=== PATIENT | female | born 2000 | race Caucasian/White ===

== ENCOUNTER 2022-10-17 07:55 | Emergency (ER) | payer BC, SELFPAY ==
[2022-10-17 07:56] VITALS: BP 136/90; PULSE 69; RESP 14; TEMP 36.1; O2SAT 96; BMI 22.0
--- NOTE | 2022-10-17 08:02 | EDS_ITS ---
HPI History of Present Illness Chief Complaint: Abd Pain PFSH PFSH Medical History no medical history Home Medications ondansetron 4 mg disintegrating tablet 4 mg PO Q8H PRN nausea and vomiting 5 days #15 tabs 10/17/22 [Rx Last Taken Unknown] Allergy/AdvReac Type Severity Reaction Status Date / Time No Known Allergies Allergy Verified 10/17/22 07:56 Family History no significant family his Surgical History no surgical history Social History Smoking Status: Current every day smoker tobacco type: e-cigarettes EXAM Physical Exam Const Vital Signs: 10/17/22 07:56 Temperature 96.9 F L Temperature Source Temporal Pulse Rate 69 Respiratory Rate 14 Blood Pressure 136/90 H Blood Pressure Mean 105 Pulse Ox 96 Oxygen Delivery Method Room Air MDM MDM MDM Narrative Medical decision making narrative: HISTORY OF PRESENT ILLNESS: 22-year-old female here with abdominal pain that started approximately 2 hours prior to arrival. She complains of nausea. She also states she has been fatigued. Does note recent cough and shortness of breath. The patient denies recent surgery in the last 4 weeks or immobilization in the last 3 days, denies previous diagnosis of DVT or PE, hemoptysis, unilateral leg swelling or malignancy with treatment the last 6 months. No estrogen use noted. Denies any bleeding diathesis. Denies any urinary complaints. Sexually active with 1 partner unprotected but denies any concern for STDs vaginal discharge or vaginal lesions. Denies any constipation or diarrhea. Denies any vomiting but notes some nausea. REVIEW OF SYSTEMS: Pertinent positives: Abdominal pain, nausea Pertinent negatives: Syncope, urinary complaint PHYSICAL EXAM: Nursing triage notes reviewed, Vital signs reviewed Constitutional: please see mdm HENT: MMM Eyes: Pupils equal round and reactive to light, Extraocular muscles intact Neck: No stridor, no JVD, full neck ROM Lungs: Clear to auscultation, No wheezing or rales. No increased work of breathing, no conversational dyspnea, no accessory muscle use, no nasal flaring. No respiratory distress noted Heart: Regular rate and rhythm, No murmurs, No rubs and No gallops, 2+ distal pulses (radial, femoral, posterior tibial) in all extremities Abdomen: Soft, there is no tenderness, rigidity, rebound or guarding, no obvious peritoneal signs, no palpable pulsatile abdominal masses, no auscultated abdominal bruit : No CVAT Extremities: No edema Neuro: No focal neurological deficits, cranial nerves II through XII intact, 5/5 strength in all extremities. Intact sensation to light touch in all extremities, 2+ reflexes bilateral patella tendons. Normal gait. No ataxia. Skin: No rash or lesions noted MEDICAL DECISION MAKING: Chief Complaint: Abdominal pain, nausea External records reviewed: No recent advanced imaging the abdomen pelvis noted in the chart Factors affecting care: none Social determinants of health: none History obtained from others: none Consults: none ALL IMAGES (IF OBTAINED) HAVE BEEN PERSONALLY REVIEWED AND INTERPRETED BY MYSELF. CBC without leukocytosis, severe anemia, no thrombocytopenia. BMP without evidence of significant electrolyte abnormalities, no anion gap, no acute kidney injury. LFTs show no evidence of hepatobiliary pathology. Lipase is wnl indicating no pancreatic inflammation. Urine test is negative MDM Narrative: Patient was hemodynamically stable, afebrile, nontoxic-appearing. Abdominal exam was benign not consistent with acute surgical process. I considered the following differential diagnosis: AAA, small bowel obstruction, abdominal perforation, appendicitis, pancreatitis, hepatobiliary pathology (acute cholecystitis), mesenteric ischemia, abnormalities such as ovarian pathology, PID. I see nothing that would suggest an acute abdomen at this time. Based on history physical exam, risk factors, I have a low for bowel obstruction, incarcerated hernia, acute pancreatitis, intra-abdominal abscess, perforated viscus, diverticulitis, cholecystitis, appendicitis, PID, ovarian torsion, ectopic and tubo-ovarian abscess is very low. There is no evidence of peritonitis sepsis or toxicity at this time. Repeat abdominal exam remained benign. I feel the patient can be managed as an outpatient with follow-up with her primary physician in the next 24 to 48 hours or soon as possible. Instructions have been given for the patient to return to the ED for worsening pain, anorexia, high fevers, intractable vomiting or bleeding. The patient and/or family, caregivers express understanding. The patient and/or family, caregivers agrees with the plan. Total critical care time today provided was at least 0 [] minutes. This excludes separately billable procedures. Critical care time (if documented) is secondary to the patient having high probability of clinically significant/life threatening deterioration in the patient's condition which required my urgent intervention. Shared decision making: I will have a discussion with the patient and or visitors regarding risk/benefits of further testing or admission. They will be made aware of of the risk/benefits inherent in this decision they will be given the opportunity to voice understanding. Lab Data Attestation: I reviewed the patient's lab results. Labs: Laboratory Results - last 24 hr 10/17/22 10/17/22 08:15 08:30 WBC 4.6 RBC 4.08 L Hgb 13.6 Hct 37.7 MCV 92.4 MCH 33.3 H MCHC 36.1 H RDW Std Deviation 40.1 RDW Coeff of Lg 11.9 Plt Count 208 MPV 11.2 Immature Gran % (Auto) 0.000 Neut % (Auto) 50.7 Lymph % (Auto) 40.1 [place] % (Auto) 6.8 Eos % (Auto) 2.0 Baso % (Auto) 0.4 Absolute Neuts (auto) 2.3 Absolute Lymphs (auto) 1.84 Nucleated RBC % 0 Sodium 137 Potassium 3.6 Chloride 107 Carbon Dioxide 25.0 Anion Gap 5 BUN 8 Creatinine 0.75 Estim Creat Clear Calc 115.39 Est GFR (MDRD) Af Amer 126 Est GFR (MDRD) Non-Af 104 BUN/Creatinine Ratio 10.7 Glucose 91 Calcium 9.0 Total Bilirubin 0.60 AST 19 ALT 19 Alkaline Phosphatase 64 Total Protein 8.1 Albumin 3.9 Globulin 4.2 Albumin/Globulin Ratio 0.9 Lipase 21 Urine Test Negative Radiography Chest X-Ray - ED: Read by ED Physician Diagnostic Testing: Clinical Impression(s) from Imaging Studies Chest X-Ray 10/17/22 08:55 IMPRESSION: Normal x-ray examination of the chest. Electronically Signed: Mazin Alonzo MD at 9:21 EDT , I have personally reviewed the patient's chest x-ray. Chest x-ray is unremar kable for pulmonary edema, pneumothorax, pneumonia or focal cardiopulmonary abnormality. Discharge Plan Triage Chief Complaint: Abd Pain ED Provider: Wade Hayes Dx/Rx/DC Orders Instructions: ED Abdominal Pain Unkn Cause Fem Prescriptions: New ondansetron 4 mg tablet,disintegrating 4 mg PO Q8H PRN (Reason: nausea and vomiting) 5 Days Qty: 15 0RF Primary Care Provider: Care Physician,No Primary Referrals: Cecilio Cruz MD [Med Staff - [facility] [facility]] - Activity Restrictions/Additional Instructions: Thank you for trusting us with your care today! Please take Tylenol (2 pills, 650 mg), ibuprofen (2 pills, 400 mg) every 6 hours as needed for pain and fever control. Please return to the emergency department if your symptoms change or worsen. Please follow with your primary care physician for further outpatient evaluation and management. Disposition Disposition: Home, Self Care
[2022-10-17 08:36] LABS: Absolute Lymphocyte Count 1.84 X10^3/uL (0.83-4.51); Absolute Neutrophil Count 2.3 X10^3/uL (2.0-7.7); Basophil# 0.02 X10^3/uL; Basophil% 0.4 % (0-1); Eosinophil# 0.09 X10^3/uL; Hematocrit 37.7 % (37-47); Hemoglobin 13.6 g/dL (12.0-15.0); Lymphocyte # 1.84 X10^3/ul (0.83-4.51); Lymphocyte % 40.1 % (19-41); Mean Corp Hgb Conc 36.1 g/dL (32-36); Mean Corpuscular Hgb 33.3 pg (27.0-32.0); Mean Corpuscular Volume 92.4 fL (81-99); Mean Platelet Vol. 11.2 fl (6.2-12.0); Monocyte# 0.31 X10^3/uL; Monocyte% 6.8 % (0-10); NRBC Flagged by Analyzer 0 % (0-5); Neutrophil # 2.33 X10^3/uL (2.7-7.7); Neutrophil % 50.7 % (47-70); Platelet Count 208 K/mm3 (150-450); RBC Distribution Width CV 11.9 % (11.6-14.6); RBC Distribution Width SD 40.1 fl (35.1-43.9); Red Blood Count 4.08 M/mm3 (4.2-5.4); White Blood Count 4.6 K/mm3 (4.4-11.0)
[2022-10-17] MEDS: Ondansetron 4 MG/2 ML Vial IV (08:36)
[2022-10-17 08:46] LABS: Internal QC Validated? YES +Cl - CLEAR BKGD
[2022-10-17 08:47] LABS: Pregnancy, Urine Negative Negative
[2022-10-17 08:52] LABS: ALB/GLOB Ratio 0.9 RATIO (0.9-2.4); AST(SGOT) 19 U/L (15-37); Alanine Aminotransfer ALT/SGPT 19 U/L (13-56); Albumin, Serum 3.9 g/dL (3.2-5.0); Alkaline Phosphatase 64 U/L (45-117); Anion Gap 5 (5-15); BUN 8 mg/dL (7-18); BUN/Creat Ratio 10.7 RATIO (10-20); Chloride 107 mmol/L (98-107); Creatinine, Serum 0.75 mg/dL (0.55-1.02); EST Glomerular Filtration Rate 104 mL/min (>60); Est Glom Filt Rate - Afr Amer 126 mL/min (>60); Estimated Creatinine Clearance 115.39 ml/min; Globulin 4.2 g/dL (2.2-4.2); Glucose 91 mg/dL (74-106); Lipase 21 U/L (13-75); Potassium 3.6 mmol/L (3.5-5.1); Protein, Total 8.1 g/dL (6.4-8.2); Sodium Level 137 mmol/L (136-145)
--- NOTE | 2022-10-17 08:55 | RAD_ITS ---
STUDY: X-RAY CHEST REASON FOR EXAM: Female, 22 years old. Sob, cough TECHNIQUE: PA and lateral views of the chest. COMPARISON: None. FINDINGS: The lungs are clear and expanded. There is no demonstrated pleural abnormality. Normal size heart. Normal mediastinum and yohannes. Normal visualized pulmonary arteries. Normal visualized aortic arch and descending thoracic aorta. Normal visualized thoracic spine. Normal visualized ribs, clavicles, and shoulders. There is no demonstrated abnormality of the visualized soft tissue structures of the upper abdomen. RAD/Chest PA and Lateral IMPRESSION: Normal x-ray examination of the chest. Electronically Signed: Mazin Alonzo MD at 9:21 EDT ,
[2022-10-17] MEDS: Famotidine 200 MG/20 ML MDV 20 MG in 0.9% Normal Saline (Pres. free 8 ML 300 MG IV (09:05)
[2022-10-17 11:01] VITALS: BP 122/68; PULSE 71; RESP 16; O2SAT 99
== END 2022-10-17 11:02 | disposition home or self-care (01) ==
PROVIDERS: Emergency Provider Emergency Medicine; Visit Provider Emergency Medicine
DX: R10.9 Unspecified abdominal pain (principal); R11.0 Nausea; F17.290 Nicotine dependence, other tobacco product, uncomplicated
CPT/HCPCS: 71046; 80053; 81025; 83690; 85025; 96361; 96374; 96375; 99284; J7030; A4216; J2405; J3490

== ENCOUNTER 2023-11-02 05:03 | Inpatient (IN) | payer BC, SELFPAY ==
[2023-11-02] VITALS (45 sets, daily range): BP systolic 106–146; BP diastolic 55–84; PULSE 65–126; RESP 14–19; TEMP 36.6–37.1; O2SAT 90–99; BMI 29.7
[2023-11-02 04:46] LABS: Hemoglobin 9.3 g/dL (12.0-15.0); Mean Corp Hgb Conc 32.1 g/dL (32-36); Mean Corpuscular Hgb 29.1 pg (27.0-32.0); Mean Corpuscular Volume 90.6 fL (81-99); Mean Platelet Vol. 12.3 fl (6.2-12.0); Platelet Count 202 K/mm3 (150-450); RBC Distribution Width CV 13.6 % (11.6-14.6); RBC Distribution Width SD 45.1 fl (35.1-43.9); White Blood Count 11.2 K/mm3 (4.4-11.0)
[2023-11-02] MEDS: DiphenhydrAMINE 25 MG Capsule PO (04:54)
[2023-11-02] MEDS: Metoclopramide 10 MG Tablet PO (04:54)
[2023-11-02] MEDS: Acetaminophen 500 MG Tablet 1000 MG PO (04:54)
[2023-11-02 04:57] LABS: Protein, Urine (Random) 10.8 mg/dL (<11.9); Protein:Creat Ratio 383 mg/g CRE (0-200)
[2023-11-02 05:01] LABS: AST(SGOT) 30 U/L (15-37); Alanine Aminotransfer ALT/SGPT 27 U/L (13-56); Creatinine, Serum 0.62 mg/dL (0.55-1.02); EST Glomerular Filtration Rate 128 mL/min (>60); Est Glom Filt Rate - Afr Amer 154 mL/min (>60); Estimated Creatinine Clearance 160.34 ml/min; Uric Acid 4.8 mg/dL (2.6-6.0)
[2023-11-02] MEDS: Lactated Ringers 1,000 ML 50 ML IV (05:35)
--- NOTE | 2023-11-02 05:46 | PCM.HP.OB ---
HPI - General General Date of Admission: 11/02/23 Date of Service: 11/02/23 Chief Complaint: Headache, elevated Protein HPI Narrative CRISTIANO RODAS, is a 23 F who presents for GRANT 08/16. Pre E labs collected and pr/cr above 300. Discussed and consented for IOL. GBS positive will start PCS with Pitocin Maternal Data Information Final CLARY: 11/03/23 Gestational age: 39+6 PFSH PFSH Medical History (Updated 11/02/23 @ 05:[address] Isabella Powell MD) Pre-eclampsia Home Medications ?Medication ?Instructions ?Recorded ?Last Taken ?Type vit no.95-ferrous 1 tab PO DAILY 11/02/23 Unknown History fumarate 28 mg-folic acid 800 mcg tablet () Allergy/AdvReac Type Severity Reaction Status Date / Time No Known Allergies Allergy Verified 11/02/23 04:11 Social History Smoking Status: Former smoker History 2 Elective abortions Hx Para 0 Spontaneous abortions Hx # Term Pregnancies Ectopic pregnancies Hx # Pregnancies Multiple births # of living children NST FHR Rate Baby A Baseline: 135 Variability:: Moderate Accelerations:: 15 x 15 Decelerations:: None NST Reactive:: Yes FHR Category:: Category I Uterine Activity:: irregular ROS Constitutional Constitutional: Denies fatigue, fever(s) or malaise Eyes Eyes: Denies change in vision ENT HEENT: Reports headache(s); Denies dizziness Cardiovascular Cardiovascular: Denies chest pain, dyspnea or lightheadedness Respiratory/Chest Respiratory/Chest: Denies cough or dyspnea Gastrointestinal Gastrointestinal: Denies change in bowel habits Integumentary Integumentary: Denies rash Neurologic Neurologic: Reports headache(s); Denies confusion, dizziness, numbness or weakness Vital Signs Vital Signs Vital Signs: 11/02/23 04:07 11/02/23 04:07 11/02/23 04:07 Pulse Rate 77 Respiratory Rate 14 Blood Pressure 132/82 H BP Systolic 132 BP Diastolic 82 Pulse Ox 11/02/23 04:07 11/02/23 04:24 11/02/23 04:24 Pulse Rate 68 Respiratory Rate Blood Pressure 120/78 BP Systolic 120 BP Diastolic 78 Pulse Ox 99 Weight Weight: 86 kg Body Mass Index (BMI) 29.7 Physical Exam Const alert and no apparent distress General Appearance: cooperative HEENT normocephalic Resp normal respiratory effort GI soft to palpation GI Narrative: gravid, nontender, appropriate for gestational age Extremity no calf tenderness General Extremity: edema Skin no wounds Rashes: No rashes noted Psych activity/motor behavior normal Labs Labs Labs: Antibody Screen Pending Hct 29.0 % (37-47) L Hgb 9.3 g/dL (12.0-15.0) L Syphilis Total Ab Pending Assessment & Plan (1) Pre-eclampsia: QUALIFIERS: Trimester: third trimester Qualified Code(s): O14.93 - Unspecified pre-eclampsia, third trimester COMMENT: GRANT with proteinuria PLAN: IOL (2) 39 weeks gestation of : (3) Positive GBS test: PLAN: PCN with pitocin
[2023-11-02] MEDS: miSOPROStol 25 MCG TABLET VAGINAL ×2 (06:10→10:23)
[2023-11-02 06:18] LABS: Syphilis Antibodies Non-reactive
[2023-11-02] MEDS: 0.9% Normal Saline Single 100 ML IV.SOLN. INTRA-UTER (10:23)
[2023-11-02] MEDS: 0.9% Saline Lock 10 ML Syringe IV (10:32)
--- NOTE | 2023-11-02 13:24 | PCM.PN.BLA ---
Progress Note Late entery from approx 1015 am. Patient not feeling much cramping. No regular ctxs. Good FM. NO GRANT Currently> F HTs category 1 Perla placed over stylette in usual sterile fashion and balloon inflated to 30 cc. Patient and fetus tolerated the procedure well> placement over internal os confirmed. Second dose of vaginal cytotec then placed. Cont. expectant management for vaginal delivery. Monitor for symptoms of severe preeclampsia.
[2023-11-02] MEDS: Penicillin G Pot 5,000,000 UNITS in 0.9% Normal Saline (100mL MB+) 100 ML 150 UNITS IV (17:15)
--- NOTE | 2023-11-02 17:43 | PCM.PN.BLA ---
Progress Note Getting more painful> Cervix /-2. AROM w/ return of moderate amount of clear fluid. IUPC placed. PCN prophylaxis started. EFW < 4500 gm clinically and pelvis clinically adequate. Desires epidural> Pitocin prn
[2023-11-02] MEDS: Lactated Ringers 1,000 ML 999 ML IV (17:45)
[2023-11-02] MEDS: fentaNYL-bupivacaine (epidural) 100 ML BAG EPIDURAL ×2 (18:58→21:27)
[2023-11-02] MEDS: LACTATED RINGERS 500 ML 999 ML IV ×2 (20:36→23:56)
[2023-11-02] MEDS: Penicillin G 3,000,000 Units 50 ML 100 UNITS IV (22:25)
[2023-11-02] MEDS: Lactated Ringers 1,000 ML 200 ML IV (22:42)
[2023-11-03] VITALS (29 sets, daily range): BP systolic 93–139; BP diastolic 51–94; PULSE 72–122; RESP 14–21; TEMP 36.1–37.2; O2SAT 94–100
[2023-11-03] MEDS: fentaNYL-bupivacaine (epidural) 100 ML BAG EPIDURAL ×2 (01:00→05:13)
[2023-11-03] MEDS: Penicillin G 3,000,000 Units 50 ML 100 UNITS IV (02:32)
[2023-11-03] MEDS: Lactated Ringers 1,000 ML 200 ML IV (05:10)
--- NOTE | 2023-11-03 06:06 | PCM.PN.BLA ---
Progress Note I arrived and patient was complete. Pushed. Progressed from +1 to +3/5 station over 3 hrs. Called to patient room b/c of maternal exhaustion and attempted vacuum. Position WILI. Bladder emptied. Epidural adeaqate. Pelvis clinically adequate. R/B/A/ To trial of vacuum reviewed, patient and partner desired to proceed. Placed the vacuum on the flexion point. Pulled 2 pulls w/ 1 pop off, not really pulling when vacuum released. Trialed new vacuum in case suction was defective and pulled 2 more pulls w/ light pull pop off, not able to get adequate pull as vacuum would not stay. Clinically no true full pulls w/ the vacuum as was not able to pull and I could appreciate suction leaving as any pressure was applied. Patient pushed another 30 min. Now pushing 4 minutes. Still +3/5, caput was labia but head would restitute back in completely between pushes. No descent in past hour. Patient desires c/s over continued pushing
--- NOTE | 2023-11-03 06:11 | EX.PCM.OBRPT ---
Assessment & Plan (1) 39 weeks gestation of : (2) Pre-eclampsia: QUALIFIERS: Trimester: third trimester Qualified Code(s): O14.93 - Unspecified pre-eclampsia, third trimester COMMENT: GRANT with proteinuria (3) Positive GBS test: (4) Arrest of descent, delivered, current hospitalization: (5) deliv NOS-unsp: (6) Single live : Maternal Data Information Final CLARY: 11/03/23 Gestational age: 40 0/7 Details Operative Information Date of Procedure: 11/03/23 Pre-Operative Diagnosis: arrest of descent Post-Operative Diagnosis: same Classification: RICA Procedure Type: low transverse special education inclusion teacher #1: Osmany Guzman Type of Anesthesia: Epidural Anesthesiologist: Silvio Gautam Special Medications: duramorph Antibiotic Given: Ancef 2 grams IV x1 and Zithromax 500 mg/5 mL X1 Drain: Perla to straight drain Estimated Blood Loss: 750 Fluids Replaced: 1200 Procedure Start Time: 06:41 Procedure Stop Time: 07:20 Time of Delivery: 06:46 Findings Description of Procedure: The patient was taken to the operating room. She was prepped and draped in the dorsal supine position with a leftward tilt. A Pfannenstiel skin incision was made approximately 2 cm above the symphysis pubis and carried through to underlying layer fascia with the scalpel. The fascia was incised incised in the midline and extended laterally with the Retana scissors. The fascia was dissected off the rectus muscles with blunt and sharp dissection. The rectus muscles were in the midline and the peritoneum was entered bluntly. The peritoneal incision was stretched and the bladder blade was placed. The uterine incision was made in a low transverse fashion with the scalpel and extended superiorly and inferiorly with blunt dissection. The amniotic membranes were ruptured bluntly and clear amniotic fluid returned. The 's head was brought to the incision in the flexed position and delivered without difficulty. The remainder of the was delivered with gentle traction and fundal pressure in the standard fashion. The mouth and nares were bulb suctioned. The cord was clamped and cut as the infant was stimulated. Cord clamping was not delayed. The was handed off to the waiting nursing staff. The placenta was delivered with fundal massage and gentle traction in the standard fashion. The uterus was exteriorized and cleared of all clots and debris. The uterine incision was closed with #1 Vicryl in a running locked fashion. The incision was examined and was found to be hemostatic. Some hemoblast was placed over the uterine incision. The uterus was placed back into the peritoneal cavity and hemostasis was again confirmed. The rectus muscles were examined and any bleeding was Bovie cauterized. Hemoblast was placed over the rectus muscles. The parietal peritoneum and rectus muscles were closed en bloc with an 0 Vicryl running suture. The rectus fascia was examined and any bleeding was Bovie cauterized and the rectus fascia was closed with #1 PDS suture in a running standard fashion. The subcutaneous tissue was examining and any bleeding was Bovie cauterized. The subcutaneous tissue was reapproximated with 3-0 Vicryl suture. The skin was closed in a subcuticular fashion by the SAMPLER AND TEST PREPARER with me present in the labor and delivery suite. I performed the remainder of the procedure with assistance. All sponge, lap, and needle counts were correct. The patient was taken to her room for recovery in a stable condition. Presentation: Positive for Vertex Amniotic Membrane Rupture Type: Artificial Amniotic Fluid Description: Clear Placental Delivery Description: Expressed Placenta Disposition: Sent to Pathology Cord Vessel Description: 3 Vessels Cord Entanglement: None Cord Gases: ABG and VBG A Gender: Female ([place]) (1 minute): 8 (5 minute): 9 Delayed Cord Clamping: No Complications Complications: none Admit VTE Documentation VTE Present on Admission: No VTE Mechan Device Prophylaxis: SCD's VTE Pharm Prophylaxis Ordered: Yes
[2023-11-03] MEDS: Acetaminophen 500 MG Tablet PO (06:12)
[2023-11-03] MEDS: Sodium Citrate/Citric Acid 30 ML UDC PO (06:13)
[2023-11-03] MEDS: Cefazolin 2 GM in 0.9% Normal Saline (100mL Bag) 100 ML IV (06:30)
--- NOTE | 2023-11-03 06:30 | PLAC_PTH ---
PATIENT: CRISTIANO RODAS LOC: [facility] U#:[id number] AGE/SX: ROOM: WP010 RE11/02/[address]: Dr. Adrianna Chatterjee MD : 2000 BED: 1 DIS: 11/05/2023 SPEC #: [id number] RECD: 11/05/23 08:58 STATUS: ANH RECarolina #: [id number] STEPAN: 11/03/23 06:[address]: Adrianna Chatterjee DEPT: SURGICAL PATHOLOGY RECD BY: Tanya Lei ENTERED: 11/05/23 08:58 SP TYPE: PLACENTA OTHR DR: Dr. Isabella Powell MD No Primary Care Phys Tissues: Placenta, NOS Procedures: Surgery Specimen Level V HEADER OPERATION: Primary section PRE-OP DIAGNOSIS: Preeclampsia TISSUE SUBMITTED: Placenta MICROSCOPIC DIAGNOSIS Placenta: Placental disc - third trimester placenta (564 gm). - Focal acute vasculitis of subamniotic blood vessels. - Increased intervillous and perivillous fibrin deposition. Membranes - Acute chorioamnionitis. Umbilical cord - Three blood vessels and acute funisitis. SJ: 11/07/2023 MICROSCOPIC DESCRIPTION Slides are reviewed. GROSS DESCRIPTION SPECIMEN: PLACENTA / CLINICAL INFORMATION: A. Weight: 3.105 kg B. Gestational Age: 40 weeks C. Sex: Female PLACENTAL WEIGHT (POST FIXATION): 564 gm PLACENTAL DIMENSIONS: 21.0 x 18.0 x 3.0 cm PLACENTAL SHAPE: Usual ovoid PLACENTAL WEIGHT FOR GESTATIONAL AGE: Within 10-99th percentile MEMBRANES - Present A. Insertion: Marginal B. Site of rupture from edge: 8.0 cm from the margin C. Color of membrane: Stringer-mucoidy D. Abnormalities: None UMBILICAL CORD - Present A. Color: Stringer-morgan B. Insertion: Central C. Length: 36.0 cm D. Diameter: 1.1 cm E. Number of vessels: Three F. Abnormalities: None PLACENTAL DISC - Present A. Color of surface: Stringer-morgan B. surface abnormalities: None C. Maternal cotyledons: Intact with minimal tears D. Attached retro placental clot: No clot E. Cut surface: Dark red and spongy F. Lesions: Sections reveal a stringer indurated lesion measuring 1.0cm in greatest dimension. G. Separate clot: Absent SECTIONS SUBMITTED: (6 cassettes) 1. Membrane roll 2. Cord, maternal end, lesion 3. Cord, end 4. Placental disc, and maternal surfaces 5. Placental disc, and maternal surfaces 6. Placental disc, and maternal surfaces HERNESTO/mr 11/06/2023 TC:2 CPT: 47362
[2023-11-03] MEDS: Ketorolac 30 MG/ML Syringe IV ×3 (07:58→21:00)
[2023-11-03] MEDS: Oxytocin 15 Units/NS 250ml 15 UNITS/250 ML IV.SOLN 83 UNITS IV (08:04)
[2023-11-03] MEDS: Azithromycin 500 MG in Dextrose 5%-Water (250mL Bag) 250 ML 250 MG IV (11:32)
[2023-11-03] MEDS: Lactated Ringers 1,000 ML 100 ML IV (12:43)
[2023-11-03] MEDS: Acetaminophen 500 MG Tablet 1000 MG PO ×2 (13:21→19:11)
[2023-11-03] MEDS: Enoxaparin 40 MG/0.4 ML Syringe SC (19:11)
[2023-11-03] MEDS: 0.9% Saline Lock 10 ML Syringe IV (21:00)
[2023-11-04 00:06] VITALS: BP 114/66; PULSE 87; RESP 16; TEMP 36.2; O2SAT 99
[2023-11-04] MEDS: Acetaminophen 500 MG Tablet 1000 MG PO ×4 (00:41→20:36)
[2023-11-04] MEDS: 0.9% Saline Lock 10 ML Syringe IV ×2 (02:37→14:15)
[2023-11-04] MEDS: Ketorolac 30 MG/ML Syringe IV (02:37)
[2023-11-04 04:00] VITALS: BP 97/54; PULSE 53; RESP 16; TEMP 36.6; O2SAT 99
[2023-11-04 07:03] LABS: Hematocrit 22.1 % (37-47); Hemoglobin 7.1 g/dL (12.0-15.0); Mean Corp Hgb Conc 32.1 g/dL (32-36); Mean Corpuscular Hgb 29.7 pg (27.0-32.0); Mean Corpuscular Volume 92.5 fL (81-99); Mean Platelet Vol. 12.6 fl (6.2-12.0); Platelet Count 172 K/mm3 (150-450); RBC Distribution Width CV 14.2 % (11.6-14.6); Red Blood Count 2.39 M/mm3 (4.2-5.4); White Blood Count 16.4 K/mm3 (4.4-11.0)
[2023-11-04 08:50] VITALS: BP 107/71; PULSE 71; RESP 16; TEMP 36.4; O2SAT 99
[2023-11-04] MEDS: Ibuprofen 600 MG Tablet PO ×3 (09:48→20:36)
[2023-11-04] MEDS: Senna/Docusate Sodium 1 Tablet PO (09:48)
--- NOTE | 2023-11-04 12:55 | PCM.PN.BLA ---
Progress Note Pain well controlled, average lochia, no N/V. Denies lightheadedness, SOB. [place]. regular diet. and doing well Physical Exam Const alert General Appearance: cooperative GI GI Narrative: soft, moderate distention, fundus firm, appropriately tender. Abdominal bandage clean dry and intact Assessment & Plan Assessment/Plan (1) Single live : (2) deliv NOS-unsp: (3) Pre-eclampsia: QUALIFIERS: Trimester: third trimester Qualified Code(s): O14.93 - Unspecified pre-eclampsia, third trimester (4) Acute on chronic anemia: PLAN: Patient had chronic antepartum anemia now with superimposed blood loss anemia. Blood count seems appropriately for blood loss during surgery patient is tolerating well. Recheck CBC tomorrow. Give IV iron x 1 now. If asymptomatic will not need a blood transfusion. Likely DC home tomorrow with follow-up within 48 to 72 hours of discharge.
[2023-11-04] MEDS: Iron Sucrose Complex 200 MG in 0.9% Normal Saline (100mL Bag) 100 ML 220 MG IV (14:15)
[2023-11-04 14:37] VITALS: BP 108/68; PULSE 93; RESP 16; TEMP 36.6; O2SAT 98
[2023-11-04] MEDS: SimETHICONE 80 MG Chewable Tablet PO (18:16)
[2023-11-04] MEDS: Enoxaparin 40 MG/0.4 ML Syringe SC (18:44)
[2023-11-04 20:35] VITALS: BP 93/68; PULSE 105; RESP 16; TEMP 36.9; O2SAT 98
[2023-11-05] VITALS (11 sets, daily range): BP systolic 108–131; BP diastolic 67–84; PULSE 73–100; RESP 14–16; TEMP 36.5–37.2; O2SAT 98–100
[2023-11-05] MEDS: Acetaminophen 500 MG Tablet 1000 MG PO ×4 (02:34→20:35)
[2023-11-05] MEDS: Ibuprofen 600 MG Tablet PO ×4 (02:34→20:35)
[2023-11-05 05:52] LABS: Hematocrit 21.2 % (37-47); Hemoglobin 6.5 g/dL (12.0-15.0); Mean Corp Hgb Conc 30.7 g/dL (32-36); Mean Corpuscular Hgb 28.8 pg (27.0-32.0); Mean Corpuscular Volume 93.8 fL (81-99); Mean Platelet Vol. 11.3 fl (6.2-12.0); Platelet Count 198 K/mm3 (150-450); RBC Distribution Width CV 14.6 % (11.6-14.6); RBC Distribution Width SD 49.4 fl (35.1-43.9); Red Blood Count 2.26 M/mm3 (4.2-5.4); White Blood Count 14.4 K/mm3 (4.4-11.0)
--- NOTE | 2023-11-05 06:54 | PCM.PN.BLA ---
Progress Note pain well controlled, average lochia. Very tired, feels SOB when up and ambulating. Denies GRANT or visual changes Physical Exam Narrative ext- 2+ DTRs, no clonus Const alert General Appearance: cooperative GI GI Narrative: soft, moderate distention, fundus firm, appropriately tender. Abdominal bandage clean dry and intact Assessment & Plan Assessment/Plan (1) Acute on chronic anemia: PLAN: EBL now calculated to be 1000 cc. Is symptomatic. Will transfuse 2 U PRBCs, likely home later today and f/u tomorrow. (2) deliv NOS-unsp: (3) Pre-eclampsia: QUALIFIERS: Trimester: third trimester Qualified Code(s): O14.93 - Unspecified pre-eclampsia, third trimester PLAN: BP stable. Ok to d/c home later today, f/u tomorrow if stable
[2023-11-05] MEDS: Senna/Docusate Sodium 1 Tablet PO (09:38)
[2023-11-05] MEDS: DiphenhydrAMINE 50 MG/ML Syringe 25 MG IV (10:29)
[2023-11-05] MEDS: Furosemide 20 MG/2 ML VIAL 10 MG IV (12:52)
[2023-11-05 17:50] LABS: Hematocrit 27.9 % (37-47); Hemoglobin 9.2 g/dL (12.0-15.0); Mean Platelet Vol. 11.7 fl (6.2-12.0); Platelet Count 218 K/mm3 (150-450); RBC Distribution Width CV 15.8 % (11.6-14.6); RBC Distribution Width SD 50.3 fl (35.1-43.9); Red Blood Count 3.17 M/mm3 (4.2-5.4); White Blood Count 14.2 K/mm3 (4.4-11.0)
[2023-11-05] MEDS: Enoxaparin 40 MG/0.4 ML Syringe SC (18:16)
--- NOTE | 2023-11-05 19:21 | PCM.DC.SUM ---
Providers Date of Admission: 11/02/23 Primary Care Physician: No Primary Care Phys Reason For Visit: Diagnosis Discharge Diagnosis (1) Acute on chronic anemia: Status: Chronic Code(s): D64.9 - Anemia, unspecified Plan: EBL now calculated to be 1000 cc. Is symptomatic. Will transfuse 2 U PRBCs, likely home later today and f/u tomorrow. (2) deliv NOS-unsp: Status: Acute (3) Pre-eclampsia: Status: Acute Code(s): O14.90 - Unspecified pre-eclampsia, unspecified trimester Qualifiers: Trimester: third trimester Qualified Code(s): O14.93 - Unspecified pre-eclampsia, third trimester Plan: BP stable. Ok to d/c home later today, f/u tomorrow if stable Medications at Discharge Home Medications vit no.95-ferrous fumarate 28 mg-folic acid 800 mcg tablet () 1 tab PO DAILY 11/02/23 ferrous sulfate 325 mg (65 mg iron) tablet (FeroSul) 325 mg PO QODAY 60 days #15 tabs 11/05/23 ibuprofen 600 mg tablet 600 mg PO Q6H PRN Pain 20 days #60 TABLETS 11/05/23 Hospital Course Operations - (Primary LTCS on 11/03/23) Procedures None Summary of Care Provided Minutes Spent on Discharge: 22 Hospital Course: 23-year-old nulliparous female admitted at 39-6/7 weeks on 11/02/2023 for preeclampsia without severe features. She underwent a Perla Cytotec Pitocin and artificial rupture membranes induction. She progressed to complete and pushed for over 3 hours and had a failed attempted vacuum delivery. She then underwent primary section on 11/03/2023. She had chronic antepartum anemia. She had of a calculated blood loss of right around 1000 cc. Resulting in acute blood loss anemia superimposed on chronic on antepartum anemia. This is consistent with immediate hemorrhage. Consistent with blood loss during surgery. She had symptomatic anemia and today she had 2 units of packed red blood cells transfused. After transfusion her hemoglobin krzysztof appropriately. Patient felt much better. She was ambulating and urinating tolerating regular diet without difficulty. She desired discharge home with routine instructions and prescriptions. She was sent home on iron. She is to follow-up in the office within 2 days for blood pressure check and to call or return with any signs or symptoms of preeclampsia. Her blood pressures were stable after delivery and she was not sent home on any blood pressure medications. Weight / BMI Weight Weight: 86 kg Body Mass Index (BMI) 29.7 ABG / Lab / Microbiology Data 11/05/23 17:30 11/02/23 04:35 Laboratory: Laboratory Results - last 24 hr 11/05/23 05:30: WBC 14.4 H, RBC 2.26 L, Hgb 6.5 L, Hct 21.2 L, MCV 93.8, MCH 28.8, MCHC 30.7 L, RDW Std Deviation 49.4 H, RDW Coeff of Lg 14.6, Plt Count 198, MPV 11.3 11/05/23 08:11: Blood Type O POSITIVE, Antibody Screen NEGATIVE, Crossmatch See Detail 11/05/23 17:30: WBC 14.2 H, RBC 3.17 L, Hgb 9.2 L, Hct 27.9 L, MCV 88.0 D, MCH 29.0, MCHC 33.0 D, RDW Std Deviation 50.3 H, RDW Coeff of Lg 15.8 H, Plt Count 218, MPV 11.7 D/C Instructions Discharge Diet: No restrictions May resume sexual activity in: 4-6 weeks Lifting Restrictions: 20 pounds Additional Activity Instructions: Nothing in the vagina for 4-6 weeks. You may return to work/school in 6 weeks. Call your doctor if your incision/area has: Continuous Slow Oozing, Sudden Increased Bleeding, Increased Pain/ Swelling, Increased Redness and Foul Smelling Discharge Call your doctor if you observe: Fever of 101 or Higher and Using more than 1 pad per hour (for 2 hours) Suture Line Care: Avoid Pulling/Pushing and Avoid Pinching/Bending Cleanse incision/area with: Keep Dressing Clean & Dry Please Follow Up With: Adrianna Chatterjee MD When: Call to make a blood pressure check and postop appointment within 3 days Call or send a [employer] message for nonemergent [phone]. You will need a post check in 6 weeks. Meaningful Use Info Meaningful Use Meaningful Use Diagnoses (Choose all that apply): None applicable Ischemic Stroke Statin Dosing Therapy Reference: STATIN DOSE THERAPY REFERENCE: * Patients > 75 years receive moderate or high dose statin therapy. * Patients 75 years or YOUNGER should receive HIGH intensity statin dose unless contraindicated. You will be required to document reason for non-treatment if statin daily dose does not meet guidelines. HIGH DOSE STATIN THERAPY DAILY Atorvastatin > than or = to 40 mg Rosuvastatin > than or = to 20 mg Amlodipine + Atorvastatin > than or = to 2.5/40 mg Ezetimibe + Simvastatin 10/80 mg Simvastatin 80mg Discharge Plan Admission Admit Date/Time: 11/02/23 05:03 Primary Reason for Your Visit: Preeclampsia, induction of labor, delivery, blood transfusion Attending Provider: Adrianna Chatterjee Primary Care Provider: Care Physician,No Primary Discharge Orders/Prescriptions Prescriptions: New ferrous sulfate [FeroSul] 325 mg (65 mg iron) tablet 325 mg PO QODAY 60 Days Qty: 15 1RF ibuprofen 600 mg tablet 600 mg PO Q6H PRN (Reason: Pain) 20 Days Qty: 60 1RF Continued PNV cmb#95-ferrous fumarate-FA [] 28 mg iron- 800 mcg tablet 1 tab PO DAILY Referrals / Follow Up: Care Physician,No Primary [Primary Care Provider] - Disposition Disposition (needs filled in before D/C Order can be placed): Home, Self Care
[2023-11-07 06:35] LABS: Pathology Specimen OB SEE PATHOLOGY REPORT
== END 2023-11-05 22:00 | disposition home or self-care (01) | DRG 787 ==
LOC: WPOUT 05:12 → WP 05:12
PROVIDERS: Admitting Provider Obstetrics & Gynecology; Referring Provider Obstetrics & Gynecology; Visit Provider Obstetrics & Gynecology
DX: O14.04 Mild to moderate pre-eclampsia, complicating childbirth (principal); D62 Acute posthemorrhagic anemia; O72.1 Other immediate postpartum hemorrhage; O99.824 Streptococcus B carrier state complicating childbirth; Z37.0 Single live birth; Z3A.39 39 weeks gestation of pregnancy; Z87.891 Personal history of nicotine dependence; O75.81 Maternal exhaustion complicating labor and delivery; O32.4XX0 Maternal care for high head at term, not applicable or unspecified; O99.02 Anemia complicating childbirth; O66.5 Attempted application of vacuum extractor and forceps
CPT/HCPCS: 59025; 59050; 82565; 82570; 84156; 84450; 84460; 84550; 85027; 86780; 86850; 86900; 86901; 86920; 86922; 88307; 99221; J1756; J7120; P9016; A4216; G0378; J1940